=== PATIENT | female | born 2000 | race Two or more races ===

== ENCOUNTER 2024-08-28 13:09 | Emergency (ER) | payer OTHER, MEDICAID ==
[~2024-08-28] VITALS: Ht 152.4 cm; Wt 68.0 kg
[2024-08-28 16:07] VITALS: BP 122/80; O2SAT 99
== END 2024-08-28 16:09 | disposition home or self-care (01) ==
LOC: ER 13:09
DX: Z04.1 Encounter for examination and observation following transport accident (principal); V89.2XXA Person injured in unspecified motor-vehicle accident, traffic, initial encounter; Y93.89 Activity, other specified; Y92.89 Other specified places as the place of occurrence of the external cause; Y99.8 Other external cause status
CPT/HCPCS: A4606; A4663